=== PATIENT | male | born 1975 | race Caucasian/White ===

== ENCOUNTER 2017-07-05 07:13 | Inpatient (IN) | payer MEDICAID, OTHER ==
[~2017-07-05] VITALS: Ht 170.2 cm; Wt 80.7 kg
[2017-07-05] MEDS ORDERED: HYDROCODONE/APAP (5/325) TAB PO ONE (08:00)
--- NOTE | 2017-07-05 08:36 | RADRPT ---
PROCEDURE: CT Temporal bones without contrast CLINICAL INDICATION: right ear pain ,swelling. COMPARISON: None relevant listed. TECHNIQUE: Thin axial images through the temporal bones with multiplanar reformats. Both axial and c oronal images were reviewed. DOSE ESTIMATE: CTDI vol = 41 mGy; DLP = 468 mGy-cm. One or more of the following dose reduction te chniques were used: automated exposure control, adjustment of the mA and/or kV according to patient size, or use of iterative reconstruction. FINDINGS: Visualized brain: Normal. Visualized orbits: Normal. Visualized sinuses: Mucous retention cysts or polyps within the paranasal sinuses. Soft tissues: Normal. RIGHT External auditory canal: The membranous and bony portions of the external auditory canal are complet jean paul opacified. Tympanic membrane: Silhouetted by debris in the external auditory canal. Middle ear cavity: Moderate amount of fluid within the epitympanum, mesotympanum, and hypotympanum. Ossicles: Normal. Cochlea: Normal. Vestibule: Normal. Vestibular aqueduct: Not enlarged. Semicircular canals: The superior, lateral, and posterior semicircular canals are intact. Scutum: Normal. Tegmen tympani: Normal. Internal auditory canal: Normal. Facial nerve canal: Normal. Carotid canal: Normal. Skull base foramina: Normal. Mastoid air cells: Small effusion. Soft tissues: Moderate swelling of the supra-auricular scalp. LEFT External auditory canal: Normal. Tympanic membrane: Normal. Middle ear cavity: Clear. Ossicles: Normal. Cochlea: Normal. Vestibule: Normal. Vestibular aqueduct: Not enlarged. Semicircular canals: The superior, lateral, and posterior semicircular canals are intact. Scutum: Normal. Tegmen tympani: Normal. Internal auditory canal: Normal. Facial nerve canal: Normal. Carotid canal: Normal. Skull base foramina: Normal. Mastoid air cells: Normal. Additional comment: None. IMPRESSION: 1. Right otomastoiditis with surrounding soft tissue swelling. 2. The bony and membranous portions of the right external auditory canal are obstructed. RPTAT: PP Physician Prema Date Time Electronically viewed and signed by Physician Prema on 07/05/2017 08:36 LG/
--- NOTE | 2017-07-05 08:55 | ERD ---
ER Documentation Chief Complaint Date/Time DATE: 07/05/17 TIME: 08:53 Chief Complaint RT EAR CONGESTION/PAIN HPI Is a 41-year-old male presents emergency department today complaining of right ear pain and drainage for the past 3 days. States that on Wednesday he started feeling some pain in his ear. States that use some cotton and some drops that he got [id number] for pain. States he has felt chilled but denies any fevers. States his hearing is mildly decreased. ROS All systems reviewed and are negative except as per history of present illness. Allergies Allergies: Coded Allergies: No Known Drug Allergy (Verified Allergy, Mild, 05/25/10) PMhx/Soc Medical and Surgical Hx: pt denies Medical Hx, pt denies Surgical Hx History of Surgery: No Anesthesia Reaction: No Hx Neurological Disorder: No Hx Respiratory Disorders: No Hx Cardiac Disorders: No Hx Psychiatric Problems: No Hx Miscellaneous Medical Probl: No Hx Alcohol Use: Yes (OCASSIONAL) Hx Substance Use: No Hx Tobacco Use: No Smoking Status: Never smoker Physical Exam Vitals Vital Signs Date Time Temp Pulse Resp B/P Pulse Ox O2 Delivery O2 Flow Rate FiO2 07/05/17 07:19 99.8 98 19 164/99 99 Physical Exam Const: Pleasant, no acute distress Head: Atraumatic Eyes: Normal Conjunctiva ENT: Right ear with swelling and right-sided facial swelling and unable to visualize canal secondary to swelling and drainage. Tenderness to right mastoid. Nose no drainage. Throat erythema no exudate Neck: Full range of motion..~ No meningismus. Resp: Clear to auscultation bilaterally Cardio: Regular rate and rhythm, no murmurs Skin: No petechiae or rashes Back: No midline or flank tenderness Ext: No cyanosis, or edema Neur: Awake and alert Psych: Normal Mood and Affect Result Diagram: 07/05/17 0915 07/05/17 0915 Results 24 hrs Laboratory Tests Test 07/05/17 09:15 White Blood Count 14.710^3/ul Red Blood Count 4.9010^6/ul Hemoglobin 15.7g/dl Hematocrit 44.5% Mean Corpuscular Volume 90.8fl Mean Corpuscular Hemoglobin 32.0pg Mean Corpuscular Hemoglobin Concent 35.3g/dl Red Cell Distribution Width 11.9% Platelet Count 79190^3/UL Mean Platelet Volume 10.3fl Neutrophils % 82.2% Lymphocytes % 10.6% Monocytes % 6.3% Eosinophils % 0.2% Basophils % 0.3% Nucleated Red Blood Cells % 0.0/100WBC Neutrophils # 12.110^3/ul Lymphocytes # 1.610^3/ul Monocytes # 0.910^3/ul Eosinophils # 0.010^3/ul Basophils # 0.110^3/ul Nucleated Red Blood Cells # 0.010^3/ul Sodium Level 142mmol/L Potassium Level 4.6mmol/L Chloride Level 101mmol/L Carbon Dioxide Level 23mmol/L Anion Gap 23 Blood Urea Nitrogen 11mg/dl Creatinine 0.77mg/dl Glucose Level 119mg/dl Calcium Level 9.4mg/dl Total Bilirubin 0.7mg/dl Direct Bilirubin 0.00mg/dl Indirect Bilirubin 0.7mg/dl Aspartate Amino Transf (AST/SGOT) 39IU/L Alanine Aminotransferase (ALT/SGPT) 67IU/L Alkaline Phosphatase Pending Total Protein 9.4g/dl Albumin 4.8g/dl Globulin 4.60g/dl Albumin/Globulin Ratio 1.04 Current Medications Medications (Trade) Dose Ordered Sig/Zonia Route PRN Reason Start Time Stop Time Status Last Admin Dose Admin Acetaminophen/ Hydrocodone Bitart 1 tab 1 tab ONCE ONCE PO 07/05/17 08:00 07/05/17 08:01 DC 07/05/17 07:46 Ampicillin Sodium/ Sulbactam Sodium (Unasyn 3gm/NS (Pmx)) 100 ml @ 100 mls/hr ONCE ONCE IVPB 07/05/17 10:00 07/05/17 10:59 DC 07/05/17 10:08 Ciprofloxacin HCl (Ciprofloxacin HCl Otic) 4 drop BID RIGHT EAR 07/05/17 10:00 07/05/17 10:08 Ondansetron HCl (Zofran Inj) 4 mg BRIDGE ORDER PRN IV NAUSEA AND/OR VOMITING 07/05/17 10:00 07/06/17 09:59 Acetaminophen (Tylenol Tab) 650 mg ER BRIDGE PRN PO MILD PAIN/FEVER 07/05/17 10:00 07/06/17 09:59 DIAGNOSTIC IMAGING REPORT Patient: MARKY FALL : 1975 Age: 41 Sex: M MR #: [id number] DOS: 07/05/17 0000 Ordering MD: BRAYDEN RENEE PA-C Location: [facility] Room/Bed: PROCEDURE: CT Temporal bones without contrast CLINICAL INDICATION: right ear pain ,swelling. COMPARISON: None relevant listed. TECHNIQUE: Thin axial images through the temporal bones with multiplanar reformats. Both axial and coronal images were reviewed. DOSE ESTIMATE: CTDI vol = 41 mGy; DLP = 468 mGy-cm. One or more of the following dose reduction techniques were used: automated exposure control, adjustment of the mA and/or kV according to patient size, or use of iterative reconstruction. FINDINGS: Visualized brain: Normal. Visualized orbits: Normal. Visualized sinuses: Mucous retention cysts or polyps within the paranasal sinuses. Soft tissues: Normal. RIGHT External auditory canal: The membranous and bony portions of the external auditory canal are completely opacified. Tympanic membrane: Silhouetted by debris in the external auditory canal. Middle ear cavity: Moderate amount of fluid within the epitympanum, mesotympanum , and hypotympanum. Ossicles: Normal. Cochlea: Normal. Vestibule: Normal. Vestibular aqueduct: Not enlarged. Semicircular canals: The superior, lateral, and posterior semicircular canals are intact. Scutum: Normal. Tegmen tympani: Normal. Internal auditory canal: Normal. Facial nerve canal: Normal. Carotid canal: Normal. Skull base foramina: Normal. Mastoid air cells: Small effusion. Soft tissues: Moderate swelling of the supra-auricular scalp. LEFT External auditory canal: Normal. Tympanic membrane: Normal. Middle ear cavity: Clear. Ossicles: Normal. Cochlea: Normal. Vestibule: Normal. Vestibular aqueduct: Not enlarged. Semicircular canals: The superior, lateral, and posterior semicircular canals are intact. Scutum: Normal. Tegmen tympani: Normal. Internal auditory canal: Normal. Facial nerve canal: Normal. Carotid canal: Normal. Skull base foramina: Normal. Mastoid air cells: Normal. Additional comment: None. IMPRESSION: 1. Right otomastoiditis with surrounding soft tissue swelling. 2. The bony and membranous portions of the right external auditory canal are obstructed. RPTAT: PP Dedrick Camp Physician Date Time Electronically viewed and signed by Physician Prema on 07/05/2017 08: 36 LG/ CC: BRAYDEN RENEE PA-C Procedures/MDM This is a 41-year-old male who presents the emergency department today complaining of right ear pain and some drainage for the past 3 days. Patient is afebrile and otherwise well-appearing however on physical exam I was unable to evaluate the TM at all as there is a significant amount of swelling and drainage. Patient also had mastoid tenderness and therefore did obtain a CT scan noncontrast Laboratory workup shows an elevated white blood cell count of 14.7. He is not anemic. Platelets are within normal limits. Electrolytes are within normal limits. Glucose within normal limits. Liver enzymes are within normal limits. CT scan noncontrast shows right otomastoiditis with surrounding soft tissue swelling. The bony and membranous portions of the right external auditory canal are obstructed. Discussed the patient with Dr. Gordon, and he did ask me to call ENT specialist on -call. I did speak to Dr. Ferrell, ENT personal development mentor who recommended that the patient be given Unasyn and eardrops here in the emergency department. Eardrops were attempted although patient's ear canal is severely obstructed. Patient symptoms at this time is consistent with mastoiditis. Patient is afebrile and otherwise well-appearing however given patient's CT scan and physical exam do feel it is best to admit the patient to the hospital at this time. Dr. Ferrell has indicated that he will do his best to stop by and see the patient between today and tomorrow. I have explained all results to the patient. Patient was given [place] here in the emergency department in addition to the IV Unasyn. Any further orders placed will be placed by the admitting physician or Dr. Ferrell. Departure Diagnosis: Primary Impression: Mastoiditis Laterality: right Qualified Code: H70.91 - Mastoiditis, right Condition: Fair BRAYDEN RENEE PA-C Jul 05, 2017 08:55
[2017-07-05 09:24] LABS: BASOPHIL # 0.1 10^3/ul (0.0-0.1); BASOPHILS % 0.3 % (0.0-2.0); EOSINOPHILS % 0.2 % (0.0-7.0); HEMATOCRIT 44.5 % (42.0-52.0); HEMOGLOBIN 15.7 g/dl (14.0-18.0); LYMPHOCYTES # 1.6 10^3/ul (0.8-2.9); LYMPHOCYTES % 10.6 % (15.0-51.0); MEAN CORPUSCULAR HGB CONC 35.3 g/dl (32.0-37.0); MEAN CORPUSCULAR VOLUME 90.8 fl (82.0-101.0); MEAN PLATELET VOLUME 10.3 fl (7.4-10.4); MONOCYTE # 0.9 10^3/ul (0.3-0.9); MONOCYTES % 6.3 % (0.0-11.0); NEUTROPHIL # 12.1 10^3/ul (1.6-7.5); NEUTROPHILS % 82.2 % (39.0-77.0); PLATELET COUNT 244 10^3/UL (140-415); RED CELL DISTRIBUTION WIDTH 11.9 % (11.5-14.5); WHITE BLOOD COUNT 14.7 10^3/ul (4.8-10.8)
[2017-07-05 09:45] LABS: ALBUMIN 4.8 g/dl (3.3-4.9); ALBUMIN/GLOBULIN RATIO 1.04; BILIRUBIN,INDIRECT 0.7 mg/dl (0-1.1); BILIRUBIN,TOTAL 0.7 mg/dl (0.2-1.3); CALCIUM 9.4 mg/dl (8.4-10.2); CREATININE 0.77 mg/dl (0.61-1.24); POTASSIUM 4.6 mmol/L (3.5-5.1); TOTAL PROTEIN 9.4 g/dl (6.1-8.1)
--- NOTE | 2017-07-05 09:57 | QN ---
Documentation Comment I have seen and evaluated the patient along with the PA and/or [facility] provider. I agree with the evaluation and plan of care. Please see their documentation for full ER course and evaluation. In short: Patient presents with right-sided ear pain and swelling On exam: Significant swelling to the pinna and tenderness over the mastoid process Assessment and plan: The patient has clinical signs and symptoms consistent with mastoiditis. He is not a diabetic, this is not consistent with malignant otitis externa. The patient will benefit from IV antibiotics. Antibiotics provided. Consultation with ENT, Dr. Ferrell who agrees to consult on the case. Accepting care team and consultations: I discussed the current laboratory data, diagnostic imaging and emergency care provided. Admitting team: Dr. Balderas Admitting team indication: Insurance directed Consulting services: ENT, GARETH Dover MD Jul 05, 2017 09:57
[2017-07-05] MEDS ORDERED: ACETAMINOPHEN 325 MG TAB PO PRN (10:00)
[2017-07-05] MEDS ORDERED: CIPROFLOXACIN HCL OTIC DROP 0.25 ML RIGHT EAR SCH (10:00)
[2017-07-05] MEDS ORDERED: AMPICILLIN/SULB 3 GM/NS (PMX) 100 ML IVPB ONE (10:00)
[2017-07-05] MEDS ORDERED: ONDANSETRON 4 MG INJ IV PRN (10:00)
[2017-07-05 11:26] VITALS: BP 158/101; RESP 18
[2017-07-05 11:27] VITALS: Ht 170.2 cm; Wt 80.7 kg
[2017-07-05] MEDS ORDERED: morphine 2 MG INJ IV ONE (13:30)
--- NOTE | 2017-07-05 14:19 | HP ---
Date/Time of Note Date/Time of Note DATE: 07/05/17 TIME: 14:09 Assessment/Plan VTE Prophylaxis VTE Prophylaxis Intervention: SCD's Lines/Catheters IV C[facility]ter [facility] (from [facility]): [place] Assessment/Plan Chief Complaint/Hosp Course This is a 41-year-old male without significant past medical history who presents with acute mastoiditis of his right ear. Acute mastoiditis and otitis media: - Continue IV unasyn for now and monitor for improvement - Dr Ferrell from ENT has been consulted, await recommendations - [place] PRN for pain control Discharge plan to self care pending improvement Problems: HPI/ROS Admit Date/Time Admit Date/Time Jul 05, 2017 at 09:53 Hx of Present Illness Mr Newberry is a 41 yo male without signicant past medical history. She presents with a 4 history of pain in his right ear as well as increasing drainage. He denies ever having had previous problems with his ear. He denies ever having had trauma to his ear. He denies inserting any foreign bodies into the ear prior to this his symptoms are occurring. He has used cotton swabs to his ear since the drainage occurred. His pain has increased and the swelling has progressed to surround his ear. Given the worsening she came to the emergency room. He denies any fevers or systemic symptoms. In the emergency room a CAT scan was performed showing acute mastoiditis and occlusion of the auditory canal. The patient received a dose of Unasyn and morphine. I saw the patient following these events and he was resting comfortably. PMH/Family/Social Past Medical History Medical History: no pertinent history Past Surgical History Past Surgical Hx: no surgical history Family History Significant Family History: no pertinent family hx Social History Alcohol Use: rarely Smoking Status: Never smoker Drug Use: none Exam/Review of Systems Vital Signs Vitals Vital Signs Date Time Temp Pulse Resp B/P Pulse Ox O2 Delivery O2 Flow Rate FiO2 07/05/17 11:26 98.4 81 18 158/101 98 Exam Exam Well appearing, NAD Alert, oriented x 3, pleasant R ear with serous drainage from auditory canal and surround swelling and erythema of the periauricular soft tissues. Inner ear exam was deferred RRR, no m/r/g CTAB Soft, nt, nd Ext without edema CT reviewed showing mastoiditis and canal occlusion Labs Result Diagram: 07/05/1715 07/05/1715 Medications Medications Current Medications Ciprofloxacin HCl 4 drop 4 drop BID RIGHT EAR Last administered on 07/05/17t 10: 08; Admin Dose 4 DROP; Start 07/05/17 at 10:00 Ampicillin Sodium/ Sulbactam Sodium (Unasyn 3gm/NS (Pmx)) 100 ml @ 100 mls/hr Q6 IVPB ; Start 07/05/17 at 14:30; Status JESSICA SEGAL MD Jul 05, 2017 14:18
[2017-07-05] MEDS ORDERED: HYDROCODONE/APAP (10/325) TAB PO PRN (14:30)
[2017-07-05] MEDS ORDERED: AMPICILLIN/SULB 3 GM/NS (PMX) 100 ML IVPB SCH (14:30)
[2017-07-05 15:15] VITALS: BP 161/96; RESP 18
[2017-07-05 15:37] VITALS: BP 153/98; PULSE 95
[2017-07-05 16:41] VITALS: BP 139/90; PULSE 88
[2017-07-05 20:20] VITALS: BP 147/83; RESP 19
[2017-07-05] MEDS: CIPROFLOXACIN HCL OTIC DROP 0.25 ML RIGHT EAR SCH (22:16)
[2017-07-05] MEDS: AMPICILLIN/SULB 3 GM/NS (PMX) 100 ML IVPB SCH (22:16)
[2017-07-06 02:14] VITALS: BP 122/66; RESP 18
[2017-07-06] MEDS: AMPICILLIN/SULB 3 GM/NS (PMX) 100 ML IVPB SCH ×4 (05:07→23:50)
--- NOTE | 2017-07-06 05:57 | CONS ---
DATE OF ADMISSION: 07/05/2017 DATE OF CONSULTATION: 07/05/2017 HISTORY OF PRESENT ILLNESS: Rogelio Newberry is a 41-year-old gentleman with admission today, he presented to the emergency room and a CT scan was consistent with mastoiditis. He is presently admitted on intravenous antibiotics and ear drops. He started off with ear pain 2 days ago and yesterday morning he began having discharge out of the ear. He also started with hearing loss and tinnitus. He has had hearing loss for the last day. He has also had some tenderness, but he denies any vertigo. PAST MEDICAL HISTORY: He has no past medical history whatsoever. PAST SURGICAL HISTORY: He has never had any surgery. ALLERGIES: NO KNOWN DRUG ALLERGIES. MEDICATION: Unasyn and ear drops. FAMILY HISTORY: Negative for any heart, lung, kidney, or liver disease. SOCIAL HISTORY: Negative tobacco, alcohol, or drug abuse. REVIEW OF SYSTEMS: Twelve point review of systems otherwise noncontributory. PHYSICAL EXAMINATION: HEENT: Today, his left canal is clear. The ear drum in retracted. There was no fluid, erythema or infection. On the right side, however, the canal is swollen shut with pus coming out, so I cannot see the eardrum. The nose shows a deviated septum, but no evidence of acute sinusitis. Oral cavity, oropharynx showed tonsils and mouth are normal. Teeth are in good repair. The tonsils are mildly enlarged without erythema or exudate. The oropharynx is otherwise clear. NECK: Reveals no lymphadenopathy or thyromegaly. Trachea is midline. [____] without lesion. He does have tenderness at level 2 and around the ear. IMPRESSION: 1. Acute otitis externa. 2. Acute otitis media. PLAN: At this point, there is no mastoid tenderness so he clearly has no evidence of [____] abscess. I think that this probably just a simple otitis media that ended up perforating through the eardrum and the pus in that canal giving him an otitis externa. I would continue the ear drops and antibiotics. We will continue to follow. I will try to return to put a wick in place to speed his recovery. Dictated By: Tan Ferrell MD /derrell/lisandra /Document#: [id number]
[2017-07-06 06:03] LABS: BASOPHILS % 0.3 % (0.0-2.0); EOSINOPHILS # 0.1 10^3/ul (0.0-0.5); EOSINOPHILS % 0.5 % (0.0-7.0); HEMATOCRIT 41.8 % (42.0-52.0); HEMOGLOBIN 14.6 g/dl (14.0-18.0); LYMPHOCYTES # 1.9 10^3/ul (0.8-2.9); LYMPHOCYTES % 16.9 % (15.0-51.0); MEAN CORPUSCULAR HEMOGLOBIN 31.6 pg (29.0-33.0); MEAN CORPUSCULAR HGB CONC 34.9 g/dl (32.0-37.0); MEAN CORPUSCULAR VOLUME 90.5 fl (82.0-101.0); MEAN PLATELET VOLUME 10.7 fl (7.4-10.4); MONOCYTES % 8.6 % (0.0-11.0); NEUTROPHIL # 8.1 10^3/ul (1.6-7.5); NEUTROPHILS % 73.2 % (39.0-77.0); PLATELET COUNT 237 10^3/UL (140-415); RED BLOOD COUNT 4.62 10^6/ul (4.70-6.10); RED CELL DISTRIBUTION WIDTH 12.1 % (11.5-14.5); WHITE BLOOD COUNT 11.1 10^3/ul (4.8-10.8)
[2017-07-06 06:37] LABS: ALANINE AMINOTRANSFERASE 52 IU/L (13-69); ALBUMIN 4.4 g/dl (3.3-4.9); ALBUMIN/GLOBULIN RATIO 1.15; ALKALINE PHOSPHATASE 83 IU/L (42-121); ANION GAP 20 (8-16); ASPARTATE AMINO TRANSFERASE 23 IU/L (15-46); BILIRUBIN,INDIRECT 0.9 mg/dl (0-1.1); BILIRUBIN,TOTAL 0.9 mg/dl (0.2-1.3); BLOOD UREA NITROGEN 12 mg/dl (7-20); CARBON DIOXIDE 28 mmol/L (21-31); CHLORIDE 98 mmol/L (97-110); CREATININE 0.92 mg/dl (0.61-1.24); GLUCOSE 96 mg/dl (70-220); POTASSIUM 3.6 mmol/L (3.5-5.1); SODIUM 142 mmol/L (135-144); TOTAL PROTEIN 8.2 g/dl (6.1-8.1)
[2017-07-06 08:00] VITALS: BP_SYST 116; BP_SYST 133; BP_DIAS 58; BP_DIAS 80; RESP 18; RESP 20
[2017-07-06] MEDS: CIPROFLOXACIN HCL OTIC DROP 0.25 ML RIGHT EAR SCH ×2 (09:37→23:10)
--- NOTE | 2017-07-06 11:32 | PN ---
Date/Time of Note Date/Time of Note DATE: 07/06/17 TIME: 11:30 Assessment/Plan VTE Prophylaxis VTE Prophylaxis Intervention: SCD's Lines/Catheters IV Catheter Type (from Nrs): Saline Lock Assessment/Plan Assessment/Plan 1.acute mastoiditis 2. Otitis media/Externa with pus in ear canal 3. acute leucocytosis Plan; IV abx, S/p ENT consult, antibiotic ear drop WBC improving, will need few more days of iV abx Unasyn Ciprofloxacin ear drops Pain control will follow up on symptoms improvement Subjective 24 Hr Interval Summary Free Text/Dictation afebrile, wbc COUNT IMPROVING, BP stable Exam/Review of Systems Vital Signs Vitals Vital Signs Date Time Temp Pulse Resp B/P Pulse Ox O2 Delivery O2 Flow Rate FiO2 07/06/17 08:00 98.0 74 18 133/80 98 Intake and Output 07/05/17 07/05/17 07/06/17 15:00 23:00 07:00 Intake Total 100 ml 1120 ml 200 ml Balance 100 ml 1120 ml 200 ml Exam Well appearing, NAD Alert, oriented x 3, pleasant R ear with serous drainage from auditory canal and surround swelling and erythema of the periauricular soft tissues. Inner ear exam was deferred RRR, no m/r/g CTAB Soft, nt, nd Ext without edema Results Result Diagram: 07/06/1744907/06/17 045 Results 24 hrs Laboratory Tests Test 07/06/17 04:50 White Blood Count 11.1 #H Red Blood Count 4.62 L Hemoglobin 14.6 Hematocrit 41.8 L Mean Corpuscular Volume 90.5 Mean Corpuscular Hemoglobin 31.6 Mean Corpuscular Hemoglobin Concent 34.9 Red Cell Distribution Width 12.1 Platelet Count 237 Mean Platelet Volume 10.7 H Neutrophils % 73.2 Lymphocytes % 16.9 Monocytes % 8.6 Eosinophils % 0.5 Basophils % 0.3 Nucleated Red Blood Cells % 0.0 Neutrophils # 8.1 H Lymphocytes # 1.9 Monocytes # 1.0 H Eosinophils # 0.1 Basophils # 0.0 Nucleated Red Blood Cells # 0.0 Sodium Level 142 Potassium Level 3.6 Chloride Level 98 Carbon Dioxide Level 28 Anion Gap 20 H Blood Urea Nitrogen 12 Creatinine 0.92 Glucose Level 96 Calcium Level 9.0 Total Bilirubin 0.9 Direct Bilirubin 0.00 Indirect Bilirubin 0.9 Aspartate Amino Transf (AST/SGOT) 23 Alanine Aminotransferase (ALT/SGPT) 52 Alkaline Phosphatase 83 Total Protein 8.2 H Albumin 4.4 Globulin 3.80 H Albumin/Globulin Ratio 1.15 HIV (1&2) Antibody NEGATIVE Medications Medications Current Medications Acetaminophen/ Hydrocodone Bitart 1 tab 1 tab Q4H PRN PO PAIN Last administered on 07/05/17 20:28; Admin Dose 1 TAB; Start 07/05/17 at 14:30 Ampicillin Sodium/ Sulbactam Sodium (Unasyn 3gm/NS (Pmx)) 100 ml @ 100 mls/hr Q6 IVPB Last administered on 07/06/17 05:07; Admin Dose 100 MLS/HR; Start at 22:00 Ciprofloxacin HCl (Ciprofloxacin HCl Otic) 4 drop BID RIGHT EAR Last administered on 07/06/17 09:37; Admin Dose 4 DROP; Start 07/05/17 at 21:00 LATRICE MARTINEZ MD Jul 06, 2017 11:32
--- NOTE | 2017-07-06 18:46 | PN ---
Date/Time of Note Date/Time of Note DATE: 07/06/17 TIME: 18:45 Assessment/Plan VTE Prophylaxis VTE Prophylaxis Intervention: heparin Lines/Catheters IV Catheter Type (from Nrs): Saline Lock Urinary Cath still in place: No Assessment/Plan Chief Complaint/Hosp Course This is a 41-year-old male without significant past medical history who presents with acute mastoiditis of his right ear. Acute mastoiditis and otitis media: - Continue IV unasyn for now and monitor for improvement, cipro drops - Dr Ferrell from ENT has been consulted, await recommendations prior to discharge - [place] PRN for pain control Discharge plan to self care pending improvement Problems: Subjective 24 Hr Interval Summary Free Text/Dictation Symtpoms clearly improving. Less pain, less swelling Exam/Review of Systems Vital Signs Vitals Vital Signs Date Time Temp Pulse Resp B/P Pulse Ox O2 Delivery O2 Flow Rate FiO2 07/06/17 08:00 98.0 74 18 133/80 98 Intake and Output 07/05/17 07/05/17 07/06/17 15:00 23:00 07:00 Intake Total 100 ml 1120 ml 200 ml Balance 100 ml 1120 ml 200 ml Exam Still wtih serous discharge from ear Swelling of soft tissue has receded Patient apperas systemically well, nontoxic Results Result Diagram: 07/06/17 0450 07/06/17 0450 Results 24 hrs Laboratory Tests Test 07/06/17 04:50 White Blood Count 11.1 #H Red Blood Count 4.62 L Hemoglobin 14.6 Hematocrit 41.8 L Mean Corpuscular Volume 90.5 Mean Corpuscular Hemoglobin 31.6 Mean Corpuscular Hemoglobin Concent 34.9 Red Cell Distribution Width 12.1 Platelet Count 237 Mean Platelet Volume 10.7 H Neutrophils % 73.2 Lymphocytes % 16.9 Monocytes % 8.6 Eosinophils % 0.5 Basophils % 0.3 Nucleated Red Blood Cells % 0.0 Neutrophils # 8.1 H Lymphocytes # 1.9 Monocytes # 1.0 H Eosinophils # 0.1 Basophils # 0.0 Nucleated Red Blood Cells # 0.0 Sodium Level 142 Potassium Level 3.6 Chloride Level 98 Carbon Dioxide Level 28 Anion Gap 20 H Blood Urea Nitrogen 12 Creatinine 0.92 Glucose Level 96 Calcium Level 9.0 Total Bilirubin 0.9 Direct Bilirubin 0.00 Indirect Bilirubin 0.9 Aspartate Amino Transf (AST/SGOT) 23 Alanine Aminotransferase (ALT/SGPT) 52 Alkaline Phosphatase 83 Total Protein 8.2 H Albumin 4.4 Globulin 3.80 H Albumin/Globulin Ratio 1.15 HIV (1&2) Antibody NEGATIVE Medications Medications Current Medications Acetaminophen/ Hydrocodone Bitart 1 tab 1 tab Q4H PRN PO PAIN Last administered on 07/05/17 20:28; Admin Dose 1 TAB; Start 07/05/17 at 14:30 Ampicillin Sodium/ Sulbactam Sodium (Unasyn 3gm/NS (Pmx)) 100 ml @ 100 mls/hr Q6 IVPB Last administered on 07/06/17 17:55; Admin Dose 100 MLS/HR; Start at 22:00 Ciprofloxacin HCl (Ciprofloxacin HCl Otic) 4 drop BID RIGHT EAR Last administered on 07/06/17 09:37; Admin Dose 4 DROP; Start 07/05/17 at 21:00 JESSICA LOWE MD Jul 06, 2017 18:46
[2017-07-06 20:17] VITALS: BP 139/84; RESP 18
[2017-07-06] MEDS ORDERED: ACETAMINOPHEN 325 MG TAB PO PRN (23:30)
[2017-07-07 02:18] VITALS: BP 153/89; RESP 18
--- NOTE | 2017-07-07 04:17 | CONS ---
DATE OF ADMISSION: 07/05/2017 DATE OF CONSULTATION: 07/07/2017 HISTORY OF PRESENT ILLNESS: I return today to see if Mr. Newberry needed a wick placed. When he pulls gently on his ear he no longer has any pain and he can actually hear through the ear. There has been drainage. When I look, there is an opening, which was not present yesterday. From my standpoint, the swelling is significantly down. I would think he is ready for discharge tomorrow with oral antibiotics as well as continuing the ear drops for 1 week. He should follow up with an ENT in about a week or so to suction the ear. If there are any questions or concerns, please feel free to call at any time. Dictated By: Tan Ferrell MD /derrell/luis /Document#: [id number]
[2017-07-07] MEDS: AMPICILLIN/SULB 3 GM/NS (PMX) 100 ML IVPB SCH ×2 (05:23→11:51)
[2017-07-07 08:00] VITALS: BP 144/85; RESP 18
[2017-07-07] MEDS: CIPROFLOXACIN HCL OTIC DROP 0.25 ML RIGHT EAR SCH (08:47)
--- NOTE | 2017-07-07 13:05 | PN ---
Date/Time of Note Date/Time of Note DATE: 07/07/17 TIME: 13:03 Assessment/Plan VTE Prophylaxis VTE Prophylaxis Intervention: SCD's Lines/Catheters IV Catheter Type (from Nrs): Sal[place] Urinary Cath still in place: No Assessment/Plan Assessment/Plan 1.acute mastoiditis 2. Otitis media/Externa with pus in ear canal 3. acute leucocytosis Plan; IV abx, S/p ENT consult, antibiotic ear drop WBC improving, will need few more days of iV abx Unasyn Ciprofloxacin ear drops Pain control will follow up on symptoms improvement Subjective 24 Hr Interval Summary Free Text/Dictation afebrile, no pain, improving wbc count, Exam/Review of Systems Vital Signs Vitals Vital Signs Date Time Temp Pulse Resp B/P Pulse Ox O2 Delivery O2 Flow Rate FiO2 07/07/17 08:00 97.6 100 18 144/85 96 Intake and Output 07/06/17 07/06/17 07/07/17 14:59 22:59 06:59 Intake Total 100 ml 1100 ml 300 ml Balance 100 ml 1100 ml 300 ml Results Result Diagram: 07/06/17 0450 07/06/17 0450 Medications Medications Current Medications Acetaminophen/ Hydrocodone Bitart 1 tab 1 tab Q4H PRN PO PAIN Last administered on 07/05/17 20:28; Admin Dose 1 TAB; Start 07/05/17 at 14:30 Ampicillin Sodium/ Sulbactam Sodium (Unasyn 3gm/NS (Pmx)) 100 ml @ 100 mls/hr Q6 IVPB Last administered on 07/07/17 11:51; Admin Dose 100 MLS/HR; Start at 22:00 Ciprofloxacin HCl (Ciprofloxacin HCl Otic) 4 drop BID RIGHT EAR Last administered on 07/07/17 08:47; Admin Dose 4 DROP; Start 07/05/17 at 21:00 Acetaminophen (Tylenol Tab) 650 mg Q6H PRN PO PAIN AND OR ELEVATED TEMP Last administered on 07/06/17 23:20; Admin Dose 650 MG; Start 07/06/17 at 23:30 LATRICE MARTINEZ MD Jul 07, 2017 13:05
--- NOTE | 2017-07-07 13:06 | PDOCDIS ---
Discharge Instructions CONDITION Patient Condition: Good HOME CARE INSTRUCTIONS: Special Diet: Regular ACTIVITY: Activity Restrictions: Slowly Increase Activity Rest between Activity Avoid heavy lifting Avoid Heavy Housework FOLLOW UP/APPOINTMENTS Follow-up Plan follow up with his own PMD through HMO insurance in 1-2 week after discharge LATRICE MARTINEZ MD Jul 07, 2017 13:06
[2017-07-07] MEDS ORDERED: CIPR1DRO3 RIGHT EAR (13:08)
[2017-07-07] MEDS ORDERED: AMO500 PO (13:08)
--- NOTE | 2017-07-07 13:10 | PDOCDIS ---
Discharge Instructions CONDITION Patient Condition: Good HOME CARE INSTRUCTIONS: Special Diet: Regular ACTIVITY: Activity Restrictions: Slowly Increase Activity Rest between Activity Avoid heavy lifting Avoid Heavy Housework FOLLOW UP/APPOINTMENTS Follow-up Plan follow up with his own PMD through HMO Insurance in 1-2 week after discharge. PT need to see ENT physician as outpatient in 2 weeks after discharge( he will need referral from his PMD to see ENT as outpatient- IN hospital he was seen by Dr. Tan Ferrell) LATRICE MARTINEZ MD Jul 07, 2017 13:09
--- NOTE | 2017-07-09 23:55 | DS ---
Date/Time of Note Date/Time of Note DATE: 07/09/17 TIME: 23:52 Discharge Summary Admission/Discharge Info Admit Date/Time Jul 05, 2017 at 09:53 Discharge Date/Time Jul 07, 2017 at 14:13 Discharge Diagnosis 1.acute mastoiditis 2. Otitis media/Externa with pus in ear canal 3. acute leucocytosis Patient Condition: Good Consults ENT consutl Dr.David Garrett Procedures None Hx of Present Illness Mr Newberry is a 41 yo male without signicant past medical history. She presents with a 4 history of pain in his right ear as well as increasing drainage. He denies ever having had previous problems with his ear. He denies ever having had trauma to his ear. He denies inserting any foreign bodies into the ear prior to this his symptoms are occurring. He has used cotton swabs to his ear since the drainage occurred. His pain has increased and the swelling has progressed to surround his ear. Given the worsening she came to the emergency room. He denies any fevers or systemic symptoms. In the emergency room a CAT scan was performed showing acute mastoiditis and occlusion of the auditory canal. The patient received a dose of Unasyn and morphine. I saw the patient following these events and he was resting comfortably. Hospital Course pt gets admitted for acute mastoditis, he also has acute otitis media with pus in ear canal. he was seen by ENT Dr.David garrett who recommended to treat with IV abx and outpatient ENT follow up for suction of ear canal.his WBC coutn improved to normal. he was treated with IV abx and discharged home with Po abx and ear drops Home Meds Active Scripts Amoxicillin* (Amoxicillin*) 500 Mg Cap, 500 MG PO BID for otiis media, #20 CAP Prov:LATRICE MARTINEZ MD 07/07/17 Ciprofloxacin Hcl (CIPROFLOXACIN HCL) 1 Each Droperette, 4 DROP RIGHT EAR BID for 10 Days Prov:LATRICE MARTINEZ MD 07/07/17 Follow-up Plan Follow up with his own PCP and ENT physician as outpatient in 1-2 week after discharge Primary Care Provider Not On Staff Doctor Time spent on discharge: > 30 minutes LATRICE MARTINEZ MD Jul 09, 2017 23:55
== END 2017-07-07 14:13 | disposition home or self-care (01) | DRG 153 ==
LOC: FTE 07:13 → PP2 09:53
PROVIDERS: ADMIT Internal Medicine; ATTEND Internal Medicine
DX: H70.001 Acute mastoiditis without complications, right ear (principal); D72.829 Elevated white blood cell count, unspecified; H60.509 Unspecified acute noninfective otitis externa, unspecified ear; H66.90 Otitis media, unspecified, unspecified ear
CPT/HCPCS: 70480; 80053; 85025; 86703; 96365; 96366; J0295; J2270